=== PATIENT | male | born 2000 | race Caucasian/White ===

== ENCOUNTER 2024-09-23 02:53 | Inpatient (IN) | payer MEDICAID, OTHER ==
[2024-09-23] VITALS (10 sets, daily range): BP systolic 109–132; BP diastolic 56–87; PULSE 90–128; RESP 15–24; TEMP 36.7; O2SAT 95–98
[~2024-09-23] VITALS: Ht 185.4 cm; Wt 68.7 kg
[2024-09-23 03:27] LABS: BASOPHILS % 0.4 % (0.0-2.0); EOSINOPHILS % 0.7 % (0.0-5.0); HEMATOCRIT. 43.5 % (42.0-52.0); HEMOGLOBIN. 14.7 g/dL (14.0-18.0); LYMPHOCYTES % 33.6 % (20.0-50.0); MEAN CORPUSCULAR HEMOGLOBIN 29.1 pg (28.0-32.0); MEAN CORPUSCULAR HGB CONC 33.9 g/dL (31.0-37.0); MEAN CORPUSCULAR VOLUME 86.1 fL (80.0-94.0); MEAN PLATELET VOLUME 8.8 fl (7.4-10.4); MONOCYTES % 6.1 % (2.0-8.0); NEUTROPHILS % 59.2 % (40.0-76.0); PLATELET 298 x1000/uL (130-400); RED BLOOD CELL COUNT 5.06 mill/uL (4.7-6.1); RED CELL DISTRIBUTION WIDTH 13.1 % (11.6-14.6); WHITE BLOOD COUNT 11.1 x1000/uL (4.5-11.0)
[2024-09-23 03:33] LABS: CHLORIDE 107 mEq/L (98-107); SODIUM 143 mEq/L (136-145)
[2024-09-23 03:34] LABS: CALCIUM 9.3 mg/dL (8.7-10.4); CARBON DIOXIDE 18 mEq/L (21-32)
[2024-09-23] MEDS: ONDANSETRON HCL 4MG/2ML INJ IV ONE (03:37)
[2024-09-23] MEDS: SODIUM CHLORIDE 0.9% 1,000 ML IV ONE (03:38)
[2024-09-23 03:39] LABS: CREATININE 1.2 mg/dL (0.6-1.3); GLUCOSE 107 mg/dL (70-105); UREA NITROGEN BLOOD 10 mg/dL (9-23)
[2024-09-23 03:40] LABS: ETHANOL BLOOD 16 mg/dL (<10)
[2024-09-23 03:40] LABS: CLARITY URINE CLEAR (CLEAR); COLOR URINE YELLOW (YELLOW); GLUCOSE URINE NEGATIVE (NEGATIVE); KETONES URINE NEGATIVE (NEGATIVE); LEUKOCYTE ESTERASE URINE NEGATIVE (NEGATIVE); NITRITE URINE NEGATIVE (NEGATIVE); OCCULT BLOOD URINE NEGATIVE (NEGATIVE); PROTEIN URINE NEGATIVE (NEGATIVE); SPECIFIC GRAVITY URINE 1.008 (1.005-1.030); UROBILINOGEN URINE 0.2 E.U./dL (0.2-1.0)
[2024-09-23 03:41] LABS: ACETAMINOPHEN < 2 ug/mL (10-30); ALANINE AMINOTRANSFERASE 13 IU/L (10-49); ALBUMIN 5.3 g/dL (3.2-4.8); ASPARTATE AMINOTRANSFERASE 18 IU/L (<34); BILIRUBIN DIRECT 0.3 mg/dL (<=3.0); BILIRUBIN TOTAL 0.7 mg/dL (0.1-1.0); PROTEIN TOTAL 7.8 g/dL (6.0-8.3)
[2024-09-23] MEDS: ACTIVATED CHARCOAL 50 G/240 ML TUBE NG ONE (03:41)
[2024-09-23 03:45] LABS: *AMPHETAMINES SCREEN URINE NEGATIVE (NEGATIVE); *BARBITURATES SCREEN URINE NEGATIVE (NEGATIVE); *BENZODIAZEPINES SCREEN URINE NEGATIVE (NEGATIVE); *COCAINE SCREEN URINE NEGATIVE (NEGATIVE); CANNABINOID URINE SCREEN NEGATIVE (NEGATIVE); ECSTASY MDMA SCREEN URINE CONF.TEST INDICATED (NEGATIVE); METHADONE URINE SCREEN NEGATIVE (NEGATIVE); OPIATES URINE SCREEN NEGATIVE (NEGATIVE); PHENCYCLIDINE URINE SCREEN NEGATIVE (NEGATIVE)
[2024-09-23] MEDS: POLYETHYLENE GLYCOL-ELECTROLYTE 4000ML PO ONE (04:19)
[2024-09-23] MEDS: LORAZEPAM 2MG/ML INJ IV ONE (05:47)
[2024-09-23] MEDS: LORAZEPAM 2MG/ML UD SYRINGE ONE (05:48)
[2024-09-23] MEDS: LEVETIRACETAM 500MG TABLET PO SCH (10:52)
[2024-09-23] MEDS ORDERED: LORAZEPAM 2MG/ML UD SYRINGE IV PRN (11:00)
[2024-09-23] MEDS: POTASSIUM CHLORIDE 20MEQ TABLET SR PO SCH (13:08)
[2024-09-24] VITALS (12 sets, daily range): BP systolic 92–126; BP diastolic 48–85; PULSE 67–104; RESP 11–26; TEMP 36.4–36.8; O2SAT 92–99
[2024-09-25] VITALS (11 sets, daily range): BP systolic 96–116; BP diastolic 57–80; PULSE 61–92; RESP 13–20; TEMP 36.2–36.7; O2SAT 95–100
[2024-09-26] VITALS: BP 112/61; PULSE 62; RESP 20; TEMP 36.3; O2SAT 98
[2024-09-26 04:00] VITALS: BP 109/65; PULSE 82; RESP 20; TEMP 36.4; O2SAT 97
[2024-09-26 08:02] VITALS: BP 108/67; PULSE 76; RESP 18; TEMP 36.2; O2SAT 100
[2024-09-26 12:00] VITALS: BP 109/54; PULSE 87; RESP 17; TEMP 36.3; O2SAT 99
[2024-09-26 16:00] VITALS: BP 115/70; PULSE 77; RESP 18; TEMP 36.3; O2SAT 100
[2024-09-26] MEDS ORDERED: LEVE1000 MT (16:38)
== END 2024-09-26 17:00 | disposition home or self-care (01) | DRG 817 ==
LOC: ER 02:53 → EDBEDREQ 03:37 → 5EST 04:52 → EDBEDREQSVC 04:57 → EDBEDREQ 04:57 → 6WST 09-25 18:06
PROVIDERS: ADMIT Internal Medicine; ATTEND Internal Medicine
DX: T43.292A Poisoning by other antidepressants, intentional self-harm, initial encounter (principal); G93.40 Encephalopathy, unspecified; R56.9 Unspecified convulsions; S09.90XA Unspecified injury of head, initial encounter; F10.129 Alcohol abuse with intoxication, unspecified; W18.39XA Other fall on same level, initial encounter; Z20.822 Contact with and (suspected) exposure to COVID-19; F32.9 Major depressive disorder, single episode, unspecified; F84.0 Autistic disorder; Y90.0 Blood alcohol level of less than 20 mg/100 ml; Z81.8 Family history of other mental and behavioral disorders; Z88.0 Allergy status to penicillin; Y92.89 Other specified places as the place of occurrence of the external cause; Y93.89 Activity, other specified; Y99.8 Other external cause status
CPT/HCPCS: 36415; 70551; 80048; 80076; 80305; 80307; 80320; 80329; 81003; 82962; 85025; 87426; 93005; 99285; A4606; J2060; J2405; G0480